=== PATIENT | male | born 1990 | race Caucasian/White ===

== ENCOUNTER 2016-06-09 07:10 | Emergency (ER) | payer OTHER ==
[~2016-06-09] VITALS: Ht 180.3 cm; Wt 114.8 kg
--- NOTE | 2016-06-09 07:12 | NUR ---
BIBA BLS TO ER BED 4
[2016-06-09 07:15] VITALS: BP 101/75
--- NOTE | 2016-06-09 07:21 | NUR ---
25 YO MALE BIB EMS FROM HOME FOR HEAD INJURY HAS LACERATION TO OCCIPITAL AREA AND INJURY TO LEFT HAND. AWAKE AND ALERT ON ARRIVAL. DENIES N/V/D; SKIN IS PINK/WARM/DRY; AAOX4 WITH EVEN AND STEADY GAIT; LUNGS CLEAR BL; HR EVEN AND REGULAR; PT DENIES ANY FEVER, CP, SOB, OR COUGH AT THIS TIME; PATIENT STATES PAIN OF 5/10 AT THIS TIME; VSS; PATIENT POSITIONED FOR COMFORT; HOB ELEVATED; BEDRAILS UP X2; BED DOWN. ER MD MADE AWARE OF PT STATUS.
[2016-06-09] MEDS ORDERED: KETOROLAC 60 MG/2 ML VIAL IM ONE (08:00)
[2016-06-09 10:09] VITALS: BP 106/57
--- NOTE | 2016-06-09 10:09 | NUR ---
Patient discharged with v/s stable. Written and verbal after care instructions given and explained to patient and special assets officer. Patient alert, oriented and verbalized understanding of instructions. Police with to car. All questions addressed prior to discharge. ID band removed. Patient advised to follow up with PMD. Rx of NORCO AND MOTRIN given. Patient educated on indication of medication including possible reaction and side effects. Opportunity to ask questions provided and answered.
== END 2016-06-09 10:09 ==
LOC: MED 07:10
DX: S01.01XA Laceration without foreign body of scalp, initial encounter (principal); S60.152A Contusion of left little finger with damage to nail, initial encounter; F10.10 Alcohol abuse, uncomplicated; Y00.XXXA Assault by blunt object, initial encounter; Y93.89 Activity, other specified; Y92.89 Other specified places as the place of occurrence of the external cause; Y99.8 Other external cause status
CPT/HCPCS: 10140; 12002; 70450; 73130; 99284; J1885; Q0092